=== PATIENT | female | born 1990 | race Caucasian/White ===

== ENCOUNTER 2016-12-12 05:20 | Inpatient (IN) | payer BC ==
[~2016-12-12] VITALS: Ht 162.6 cm; Wt 128.8 kg
[2016-12-12] VITALS (14 sets, daily range): BP systolic 99–188; BP diastolic 53–92
[2016-12-12] MEDS ORDERED: MORPHINE SULFATE 4 MG/ML DISP.SYRIN. IV PRN (07:45)
[2016-12-12] MEDS ORDERED: IV RINGERS,LACTATED 1000ML 1,000 ML IV SCH (08:02)
[2016-12-12] MEDS ORDERED: fentaNYL PF VIAL 100 MCG/2 ML VIAL IV PRN ×2 (08:15)
[2016-12-12] MEDS ORDERED: ONDANSETRON PF 4 MG/2 ML VIAL. IV PRN (08:15)
[2016-12-12] MEDS ORDERED: PROCHLORPERAZINE 10 MG/2 ML VIAL. IV PRN ×2 (08:15→14:15)
[2016-12-12] MEDS ORDERED: HYDROmorphone 2 MG/ML VIAL IV PRN (08:15)
[2016-12-12] MEDS ORDERED: LIDOCAINE 1% 1 ML SYRINGE. ID PRN (08:15)
[2016-12-12] MEDS ORDERED: DESFLURANE > 120 MINUTES IH ONE (08:49)
[2016-12-12] MEDS ORDERED: GLYCOPYRROLATE 1 MG/5 ML VIAL. ONE (08:50)
[2016-12-12] MEDS ORDERED: NEOSTIGMINE 10 MG/10 ML VIAL. ONE (08:50)
[2016-12-12] MEDS ORDERED: MIDAZOLAM HCL/PF 2 MG/2 ML VIAL. ONE (08:50)
[2016-12-12] MEDS ORDERED: fentaNYL PF VIAL 100 MCG/2 ML VIAL ONE ×2 (08:50→10:24)
[2016-12-12] MEDS ORDERED: LIDOCAINE 2% PF Vial for OR 5 ML VIAL. ONE (08:51)
[2016-12-12] MEDS ORDERED: DEXAMETHASONE SOD PHOS 20 MG/5 ML VIAL. ONE (08:51)
[2016-12-12] MEDS ORDERED: KETOROLAC 60 MG/2 ML INJ FOR OR. ONE (08:51)
[2016-12-12] MEDS ORDERED: SUCCINYLCHOLINE 200 MG/10 ML VIAL. ONE (08:51)
[2016-12-12] MEDS ORDERED: ONDANSETRON PF 4 MG/2 ML VIAL. ONE (08:51)
[2016-12-12] MEDS ORDERED: ROCURONIUM 100 MG/10 ML VIAL. ONE (08:51)
[2016-12-12] MEDS ORDERED: PROPOFOL 20 ML IV ONE (08:51)
[2016-12-12] MEDS ORDERED: SURGICEL HEMOSTAT 4X8 EACH. ONE (08:54)
[2016-12-12] MEDS ORDERED: BUPIVACAINE-EPI 0.5%-1:200000 50 ML VIAL. ONE (08:55)
[2016-12-12] MEDS ORDERED: LORazepam 0.5 MG TABLET PO PRN (09:15)
--- NOTE | 2016-12-12 11:04 | PDOC ---
BRIEF OPERATIVE NOTE Pre-Op Diagnosis RLQ pain, poss appendicitis lap appy gen ebl 20 ivf 1000 timothy ariadna dalton to rr stable #[id number] COLETTE DALTON MD Dec 12, 2016 11:04
[2016-12-12] MEDS ORDERED: MORPHINE SULFATE 2 MG/ML DISP.SYRIN. ONE (11:07)
[2016-12-12] MEDS: MORPHINE SULFATE 2 MG/ML DISP.SYRIN. IV PRN ×2 (11:08→11:20)
[2016-12-12] MEDS: KETOROLAC TROMETHAMINE 30 MG/ML INJ. IV PRN (11:22)
[2016-12-12] MEDS ORDERED: DIVALPROEX DELAYED RELEASE 250 MG TABLET.DR. PO SCH (12:00)
--- NOTE | 2016-12-12 13:15 | CONS ---
DATE OF CONSULTATION: 12/12/2016 CHIEF COMPLAINT: Abdominal pain. HISTORY OF PRESENT ILLNESS: The patient is a 26-year-old female, who is accompanied today by her dad. She has a history of 1 month of right lower quadrant pain. She was seen in the Emergency Room on 12/09/2016 and she had a transvaginal ultrasound that was normal. She then was discharged home and she had worsening of her abdominal pain today. She describes worsening right lower quadrant pain over the last 4 days. The pain is sharp and constant. It is not associated with nausea, vomiting, fevers or chills. It is not worse with movement. There is no aggravating or relieving factors. She had a CT scan last night at [facility], which showed mild ground glass edema surrounding the appendix with a borderline diameter of 8 mm, early changes of appendicitis are not excluded. There is no other etiology for her pain is identified on the CT scan. Her lab was normal with the white blood cell count 7.7. PAST MEDICAL HISTORY: Seizure disorder. PAST SURGICAL HISTORY: She had an exploratory sounds like perineal surgery after she fell in the shower ____ it during an active seizure. SOCIAL HISTORY: She is employed. She is a nonsmoker, nondrinker. She is single. Her father is here with her today. MEDICATIONS AT HOME: She takes her anti-seizure medication. ALLERGIES: SULFA. FAMILY HISTORY: Noncontributory to this illness. REVIEW OF SYSTEMS: CONSTITUTIONAL: No fevers or chills. EYES: No abrupt loss of vision or double vision. EARS, NOSE, MOUTH, AND THROAT: No loss of hearing or ringing in ears. CARDIOVASCULAR: No chest pain or heart palpitations. RESPIRATORY: No cough or shortness of breath. GASTROINTESTINAL: See HPI. GENITOURINARY: No dysuria or hematuria. MUSCULOSKELETAL: No new myalgias or arthralgias. DERMATOLOGIC: No new skin rashes or lesions. NEUROLOGIC: Headaches. She has a history of seizures. She has intermittently there exacerbated by stress and lack of sleep, no headaches. PSYCHIATRIC: She has mild depression at times. No anxiety. ENDOCRINE: No polyuria or polydipsia. She does have a history of polycystic ovary disease. HEMATOLOGIC: No easy bleeding or bruising. PHYSICAL EXAMINATION: VITAL SIGNS: She has been afebrile with a pulse in the 60s-70s, respiratory rate 16, blood pressure 149/79. O2 sat 97% on room air. Her BMI today is 48.7. GENERAL: Well-developed, morbidly obese female, in no acute distress. PSYCHIATRIC: She is cooperative with appropriate mood and affect. She is drowsy. She was given morphine ____, but she is able to awaken and answer questions appropriately and participate in the discussion. HEENT: Eyes: Pupils are round and reactive. Sclerae are nonicteric. NECK: Supple, without cervical lymphadenopathy, no supraclavicular lymphadenopathy. No neck masses or tenderness. CARDIOVASCULAR: Palpation of her right radial pulse reveals a 2+ right radial pulse. No pedal edema, respirations nonlabored. She is on room air. CHEST WALL: Nontender to palpation. ABDOMEN: Soft, nondistended. She is exquisitely tender in the right lower quadrant just beneath the McBurney's point. No palpable hernias in the right lower quadrant. No rebound, no guarding, no Rovsing sign. No abdominal tenderness in the upper abdomen, specifically no Sanford sign. MUSCULOSKELETAL: No obvious joint deformity. She can move all 4 extremities without difficulty. DERMATOLOGIC: Exposed portions of her skin are unremarkable. NEUROLOGIC: She has some twitching that is intermittent at times that her dad says it is associated with her seizure disorder, no resting tremor. LABORATORY DATA: Reviewed. IMAGING: Reviewed. I have reviewed the imaging report as well as the images. ASSESSMENT: 1. Right lower quadrant pain with abnormal appendix on imaging, possible appendicitis. 2. Morbid obesity with a BMI of 48.7. 3. Seizure disorder. PLAN: The patient and her father as well as another visitor discussed treatment options. Given the abnormality of the appendix on CT scan and ongoing right lower quadrant pain. I do think proceeding with laparoscopic appendectomy is reasonable; however, her symptoms of pain for the last month are not typical of appendicitis and there is a chance that her appendix to be unremarkable intraoperatively. At that point, I would still remove the appendix and then proceed with exploration laparoscopically to see if there is any other identifiable reason for her pain. We discussed that postoperatively, she has the risk of having ongoing pain. We also discussed the surgery it could be deferred today, if she wants to pursue further workup or have ongoing observation to see if the pain would improve. She was very insistent that she have surgery today. She is not interested in any other nonoperative measures. Risk of surgery including bleeding, infection, need to convert to open ongoing pain and finding other pathology requiring repair as well as increased risk of seizures were all discussed with her and her father as well. Questions are answered and both of them desire to proceed with the surgery, had the father signed her consent because she is drowsy after having had morphine. The patient also signed her consent. Questions were answered. COLETTE DALTON MD DR: CINDI/david JOB#: [id number] / [id number] BO Cortes MD, URSULA MD
[2016-12-12] MEDS ORDERED: 0.9 % SODIUM CHLORIDE 10 ML DISP.SYRIN. IV PRN (14:15)
[2016-12-12] MEDS ORDERED: LORazepam 1 MG TABLET PO PRN (14:15)
[2016-12-12] MEDS ORDERED: CALCIUM CARBONATE 500 MG TAB.CHEW PO PRN (14:15)
[2016-12-12] MEDS ORDERED: oxyCODONE/APAP 5/325 1 TAB TABLET PO PRN (14:15)
[2016-12-12] MEDS: oxyCODONE/APAP 5/325 1 TAB TABLET PO PRN ×2 (14:29→20:32)
--- NOTE | 2016-12-12 14:46 | OP ---
DATE OF SURGERY: 12/12/2016 PREOPERATIVE DIAGNOSIS: Right lower quadrant pain, possible appendicitis. POSTOPERATIVE DIAGNOSIS: Right lower quadrant pain, possible appendicitis. PROCEDURE: Laparoscopic appendectomy. SURGEON: Colette Dalton M.D. ANESTHESIA: General. ESTIMATED BLOOD LOSS: 20 mL. IV FLUIDS: 1000 mL. INDICATIONS: This is a 26-year-old female who presents with right lower quadrant pain suspicious for acute appendicitis by CT scan. FINDINGS: The body of the appendix appeared mildly thickened and injected, subtle changes to suggest early appendicitis. No other intra-abdominal abnormality noted. DESCRIPTION OF PROCEDURE: After informed consent was obtained, the patient was taken to the operating room and placed in supine position. After adequate induction of general anesthesia, she was prepped and draped in usual sterile fashion. An umbilical skin incision was made with a scalpel, subcutaneous tissues with a hemostat. [facility] was used to grab the fascia and lift it anteriorly. Veress was used to gain access to the peritoneal cavity. Low opening pressures confirmed intraperitoneal placement of Veress. Pneumoperitoneum to 15 mmHg was established followed by placement of 5 mm port. A 5 mm 30 degree lens was inserted, which revealed good port placement. No evidence of entry trauma. She was placed head down and two additional ports were placed, one was the left lower quadrant port and one was a 5 mm port. They were placed under direct vision. The left lower quadrant port was a 12 mm port and the suprapubic port was a 5 mm port. The appendix was visible in the right lower quadrant with the changes described above. A window was made at the base of appendix with a [place] dissector. Laparoscopic NELLI blue load stapler was used to divide the base of the appendix. Laparoscopic NELLI white load was then used to divide the mesoappendix. Appendix was placed in laparoscopic bag and brought out to the left lower quadrant incision. There was a little bit of bleeding from the mesoappendiceal staple line that was easily controlled with a clip supervisor rose grading. Right lower quadrant was irrigated. Irrigant returned clear. The staple lines were intact and hemostatic. The small bowel was then run and there was no evidence of Meckel's diverticulitis and there was no abnormality. The small bowel and cecum appeared normal as did the visible portions of the right colon. The gallbladder grossly appeared normal. The uterus, ovaries and tubes appeared normal. No evidence of inguinal hernia laparoscopically. At this point, the final look at the right lower quadrant revealed it to be hemostatic. Fascial closure device was used to close the fascia at the left lower quadrant incision using 0 Vicryl suture. The ports were removed under direct vision. They were hemostatic. Pneumoperitoneum was desufflated. Skin incisions and fascia were injected with local anesthetic. Skin incisions were closed with 4-0 Monocryl in subcuticular fashion. Sterile dressings were placed. She tolerated the procedure well. There were no apparent complications. She was then transferred in stable condition to recovery room. COLETTE DALTON MD DR: CINDI/david JOB#: [id number] / [id number] BO Cortes MD, URSULA MD
--- NOTE | 2016-12-12 15:05 | PDOC2 ---
NEUROLOGY CONSULT Date of Admission Date of Admission DATE: 12/12/16 TIME: 14:56 Reason for Consult Reason for Consult: IMPRESSION: Seizure. Appendicitis Obesity. RECOMMENDATIONS/PLAN: Continue Depakote home regimen. EEG Lab: see orders. HISTORY OF THE PRESENT ILLNESS: 26-y-old female patient with Hx of seizure and has been treated with Depakote. She was admitted into the [facility] hospital this time due to right lower quadrant pain with consideration of appendicitis and she received surgical treatment. She stated she had a seizure a week ago and has seizures about 1 a month. PAST MEDICAL HISTORY: Seizure.. PAST SURGICAL HISTORY: Exploratory perineal surgery ?after she fell in the shower. SOCIAL HISTORY: Denies smoking and drinking. MEDICATIONS AT HOME: Depakote. ALLERGIES: SULFA. FAMILY HISTORY: Noncontributory to this illness. REVIEW OF SYSTEMS: Constitutional: No malnutrition, weight loss, cachexia. Head: No traumatic brain or head injury. Skin: No edema, or rash. Ear: No infection. Eyes: No vision loss or color blindness. Nose: No bleeding or purulent discharges. Hearing: No hearing decrease. Neck: No injury. Breast: No history of cancer, masses,or discharges. Cardiac: No GA, arrhythmia. Pulmonary: No COPD. GI: No GI ulcer, GI bleeding. Urinary/genital: UTI. Endocrinologic: Obesity. Skeletomuscular: No muscular atrophy, deformity. Neurological: see HP. Psychiatric: Denies drug use/abuse. Otherwise, not [id number] review of systems. PHYSICAL EXAMINATION: General appearance is in subacute distress. HEENT: Normocephalic and nontraumatic. Eyes, nose, ears, and throat are unremarkable. Neck is supple. No lymphadenopathy. No bruits are heard over the carotid artery. No crepitus. Cardiovascular: S1, S2, regular rate and rhythm. Pulmonary: Clear to auscultation bilaterally. Abdomen: Bowel sounds are positive. Extremities: No rash, lesions, or edema. No restriction of range of motion NEUROLOGICAL EXAMINATION: Sleepiness. Oriented to time, place and person. PERRL. EOMI. CN: no focal findings. Muscle tone: within normal. Muscle strength: 5 DTR: 2 Plantar reflex: Flexor response bilaterally Gait: not examined in bed. Sensory exam: no abnormal findings. No cerebellar signs elicited. F-T-N test not performed due to sleepiness. Current Medications Current Medications Current Medications Morphine Sulfate 2 mg PRN Q2HR PRN IV PAIN Last administered on 12/12/16 08:08 ; Start 12/12/16 at 07:45 Ondansetron HCl (Zofran) 4 mg PRN Q6HRS PRN IV NAUSEA/VOMITING; Start 12/12/16 at 08:15; Stop 12/12/16 at 18:00 Fentanyl Citrate (Fentanyl 2ml Vial) 25 mcg PRN Q5MIN PRN IV MILD PAIN; Start 12/12/16 at 08:15; Stop 12/12/16 at 18:00 Fentanyl Citrate (Fentanyl 2ml Vial) 50 mcg PRN Q5MIN PRN IV MODERATE PAIN; Start 12/12/16 at 08:15; Stop 12/12/16 at 18:00 Morphine Sulfate 1 mg PRN Q10MIN PRN IV SEVERE PAIN Last administered on 11:20; Start 12/12/16 at 08:15; Stop 12/12/16 at 18:00 Ringer's Solution 1,000 ml @ 30 mls/hr Q24H IV Last administered on 12/12/16 08:02; Start 12/12/16 at 08:02; Stop 12/12/16 at 20:01 Lidocaine HCl 2 ml PRN 1X PRN ID PRIOR TO IV START; Start 12/12/16 at 08:15; Stop 12/12/16 at 18:00 Hydromorphone HCl (Dilaudid) 0.5 mg PRN Q10MIN PRN IV SEV PAIN, Second choice; Start 12/12/16 at 08:15; Stop 12/12/16 at 18:00 Prochlorperazine Edisylate (Compazine) 5 mg PACU PRN PRN IV NAUSEA, MRX1 Last administered on 12/12/16 11:08; Start 12/12/16 at 08:15; Stop 12/12/16 at 18:00 Desflurane (Suprane) 90 ml STK-MED ONCE IH ; Start 12/12/16 at 08:49; Stop at 08:50; Status DC Neostigmine Methylsulfate (Bloxiverz) 10 mg STK-MED ONCE .ROUTE ; Start 12/12/16 at 08:50; Stop 12/12/16 at 08:51; Status DC Midazolam HCl (Versed) 2 mg STK-MED ONCE .ROUTE ; Start 12/12/16 at 08:50; Stop 12/12/16 at 08:51; Status DC Fentanyl Citrate (Fentanyl 2ml Vial) 100 mcg STK-MED ONCE .ROUTE ; Start at 08:50; Stop 12/12/16 at 08:51; Status DC Glycopyrrolate (Robinul) 1 mg STK-MED ONCE .ROUTE ; Start 12/12/16 at 08:50; Stop 12/12/16 at 08:51; Status DC Rocuronium Gravette (Zemuron) 100 mg STK-MED ONCE .ROUTE ; Start 12/12/16 at 08:51 ; Stop 12/12/16 at 08:52; Status DC Propofol 20 ml @ As Directed STK-MED ONCE IV ; Start 12/12/16 at 08:51; Stop 12/12 at 08:52; Status DC Dexamethasone Sodium Phosphate (Decadron) 20 mg STK-MED ONCE .ROUTE ; Start 12/12 at 08:51; Stop 12/12/16 at 08:52; Status DC Ondansetron HCl (Zofran) 4 mg STK-MED ONCE .ROUTE ; Start 12/12/16 at 08:51; Stop 12/12/16 at 08:52; Status DC Ketorolac Tromethamine (Toradol For Or Only) 60 mg STK-MED ONCE .ROUTE ; Start 12/12/16 at 08:51; Stop 12/12/16 at 08:52; Status DC Lidocaine HCl (Lidocaine Pf 2% Vial) 5 ml STK-MED ONCE .ROUTE ; Start 12/12/16 at 08:51; Stop 12/12/16 at 08:52; Status DC Succinylcholine Chloride (Anectine) 200 mg STK-MED ONCE .ROUTE ; Start 12/12/16 at 08:51; Stop 12/12/16 at 08:52; Status DC Cellulose 1 each STK-MED ONCE .ROUTE ; Start 12/12/16 at 08:54; Stop 12/12/16 at 08:55; Status DC Bupivacaine HCl/ Epinephrine Bitart (Marcaine-Epi 0.5%-[id number]) 50 ml STK-MED ONCE .ROUTE Last administered on 12/12/16t 10:12; Start 12/12/16 at 08:55; Stop 12/12/16 at 08:56; Status DC Divalproex Sodium (Depakote) 250 mg [id number] PO ; Start 12/12/16 at 12:00 Lorazepam (Ativan) 0.5 mg PRN Q8HRS PRN PO ANXIETY / AGITATION; Start 12/12/16 at 09:15 Cefoxitin Sodium 100 ml @ As Directed STK-MED ONCE IV ; Start 12/12/16 at 09:36 ; Stop 12/12/16 at 09:37; Status DC Ephedrine Sulfate (Akovaz) 50 mg STK-MED ONCE .ROUTE ; Start 12/12/16 at 09:54; Stop 12/12/16 at 09:55; Status DC Cefoxitin Sodium 100 ml @ 200 mls/hr 1X PREOP PRN IV PRIOR TO SURGERY Last administered on 12/12/16 09:52; Start 12/12/16 at 10:15 Fentanyl Citrate (Fentanyl 2ml Vial) 100 mcg STK-MED ONCE .ROUTE ; Start at 10:24; Stop 12/12/16 at 10:25; Status DC Oxycodone/ Acetaminophen (Percocet 5/325) 2 tab PRN Q4HRS PRN PO PAIN Last administered on 12/12/16 14:29; Start 12/12/16 at 11:15 Ketorolac Tromethamine (Toradol) 30 mg PRN Q6HRS PRN IV PAIN Last administered on 12/12/16 11:22; Start 12/12/16 at 11:15; Stop 12/17/16 at 11:14 Morphine Sulfate 2 mg STK-MED ONCE .ROUTE ; Start 12/12/16 at 11:07; Stop at 11:08; Status DC Sodium Chloride (Normal Saline Flush) 3 ml PRN DAILY PRN IV AFTER MEDS AND BLOOD DRAWS; Start 12/12/16 at 14:15 Potassium Chloride/Sodium Chloride 1,000 ml @ 75 mls/hr [id number] IV ; Start 12/12 at 15:00 Prochlorperazine Edisylate (Compazine) 10 mg PRN Q6HRS PRN IV NAUSEA/VOMITING; Start 12/12/16 at 14:15 Calcium Carbonate/ Glycine (Tums) 500 mg PRN Q3HRS PRN PO UPSET STOMACH; Start 12/12/16 at 14:15 Oxycodone/ Acetaminophen (Percocet 5/325) 1 tab PRN Q4HRS PRN PO MILD PAIN, 1ST CHOICE; Start 12/12/16 at 14:15 Senna/Docusate Sodium (Senna Plus) 1 tab BID PO ; Start 12/12/16 at 21:00 Divalproex Sodium (Depakote Er) 500 mg QHS PO ; Start 12/12/16 at 21:00 Escitalopram Oxalate (Lexapro) 10 mg DAILY PO ; Start 12/13/16 at 09:00 Lorazepam (Ativan) 1 mg PRN Q6HRS PRN PO ANXIETY / AGITATION; Start 12/12/16 at 14:15 Allergies Allergies: Coded Allergies: Sulfa (Sulfonamide Antibiotics) (Verified Allergy, Intermediate, 12/12/16) Vitals VITALS Vital Signs Date Time Temp Pulse Resp B/P (MAP) Pulse Ox O2 Delivery O2 Flow Rate FiO2 12/12/16 14:29 Nasal Cannula 12/12/16 14:00 97.7 69 18 99/68 (52) 95 2.0 97.7 MIK PATEL MD Dec 12, 2016 15:05
--- NOTE | 2016-12-12 15:52 | HP ---
ADMIT DATE: 12/12/2016 CHIEF COMPLAINT: Appendicitis HISTORY OF PRESENT ILLNESS: The patient relates that she actually had had pain off and on for the past month, but attributed to her PCOS. However, when pain became worse and worse she had presented to the Emergency Room for the first time. Ultrasound and labs did not reveal any abnormalities and she was discharged with hydrocodone, when even this did not help, the patient represented to the Emergency Room and was diagnosed with appendicitis. She was promptly transferred to [facility] for surgical attention. The patient was taken to the OR first thing in the morning by Dr. Matias. PAST MEDICAL HISTORY: PCOS. FAMILY HISTORY: No significant family history known to the patient. SOCIAL HISTORY: She lives by herself. Smokes occasionally. Denies alcohol or drugs. ALLERGIES: SULFA. MEDICATIONS: MAR reconciled with home medications.. REVIEW OF SYSTEMS: Positive as per HPI. She denies any fevers, chills, any chest pain, nausea, vomiting or diarrhea. Rest of organ system review is answered negatively as well. PHYSICAL EXAMINATION: VITAL SIGNS: Show a blood pressure of 102/61, heart rate of 78, respiratory rate at 20. She is afebrile. GENERAL: This is a morbidly obese 26-year-old woman, alert and oriented, in no acute distress. LUNGS: Clear to auscultation bilaterally. HEART: Regular rate and rhythm. ABDOMEN: Obese, positive bowel sounds. Surgical incisions covered with gauze. EXTREMITIES: Show no edema. SKIN: Warm, soft and dry. NEUROLOGIC: She appears grossly intact. LABORATORY DATA: From [facility] were reviewed. ASSESSMENT AND PLAN: The patient is a 26-year-old woman with appendicitis, now status post laparoscopic appendectomy by Dr. Matias. She is recovering appropriately. She has pain medications available both p.o. as well as IV. She has been placed on diet by surgery already. Anticipate discharge in the morning. CLAUDINE ARIZA MD DR: UR/nts JOB#: [id number] / [id number] DANIEL
[2016-12-12] MEDS: SENNOSIDES/DOCUSATE 8.6/50MG TABLET. PO SCH (20:32)
[2016-12-12] MEDS ORDERED: DIVALPROEX EXTENDED RELEASE 500 MG TAB.ER.24H. PO SCH (21:00)
[2016-12-13] MEDS: oxyCODONE/APAP 5/325 1 TAB TABLET PO PRN ×4 (01:25→13:46)
--- NOTE | 2016-12-13 01:40 | ACF ---
Admission Forms Criteria ABDOMINAL PAIN Clinical Indications for Admission to Inpatient Care (Place 'X' for any and all applicable criteria): Admission is indicated for ANY ONE of the following(1)(2)(3)(4)(5): [ ]I. Inpatient admission required rather than observation care (Also use Abdominal Pain: Observation Care, as appropriate) because of ANY ONE of the following: [ ]a) Severe pain requiring acute inpatient management [ ]b) Identification of etiology/finding that requires inpatient care (eg, aortic dissection, free air) [ ]c) Absent bowel sounds with complete ileus(6) [ ]d) Suspected toxic megacolon [ ]e) Severe electrolyte abnormalities requiring inpatient care [ ]f) High fever or infection requiring inpatient admission as indicated by ANY ONE of following(7)(8): [ ] i) Appropriate outpatient or observational care antimicrobial treatment unavailable, not effective, or not feasible [ ] ii) Documented bacteremia [ ] iii) Temperature > 104.9 degrees F (oral) [ ] iv) T >103.1 F (oral) or < 96.8 F(rectal) that does not respond to all emergency treatment measures [ ]g) Signs of intestinal obstruction [B] [ ]h) Hemodynamic instability [ ]i) IV fluid to replace significant ongoing losses (greater than 3 L/m2 per day) (12)(13) [ ]j) Percutaneous or open drainage (eg, abscess, biliary tract ) procedures [ ]k) Parenteral nutrition regimen that must be implemented on inpatient basis [ ]l) Other condition,treatment or monitoring requiring inpatient admission. [ ]II. Peritoneal signs present [X]III. Surgery needed that cannot be performed on an ambulatory basis. [ ]IV. Evaluation requires patient to not eat or drink for extended period ( eg, more than 24 hours). [ ]V. Contraindications and/or Inappropriate clinical situations for Observational Care in patients with abdominal pain, when ANY ONE of the following is required: [ ]a) Thorough evaluation is required to prevent catastrophic events due to delays in diagnosing (e.g.Mesenteric ischemia) 1,3 [ ]b) Patient with severe pathology or with chronic symptoms unlikely to improve in the ED stay (3) [ ]. General contraindications and/or Inappropriate clinical situations for Observational Care in patients with abdominal pain, when ANY ONE of the following is required: [ ]a) Prediction of prolongation of LOS based on ANY ONE of the following may be considered as a contraindication for observational care 2, 3, 4, 5, 6, 7, 8, 9, 10, 11 [ ]i) Age > 65 yrs. [ ]ii) Patient arriving by ambulance [ ]iii) Patient with high acuity [ ]iv) Patient requiring vital sign monitoring [ ]v) Patient on IV medication [ ]b) Systolic blood pressures 180mmHg 3,12 [ ]c) Patient with altered mental status including delirium and other alteration of consciousness, (3) [ ]d) Patient whose discharge disposition will be to a residential home or rehabilitation home should not be managed in Emergency Department Observation Unit. CMS rule requires 3 days hospital stay before such placement.3,13 [ ]e) Patient with failure to thrive due to broad array of etiologies 3,16,17 [ ]f) Inability to ambulate 3,14 Extended stay beyond goal length of stay may be needed for(2)(3): [ ]a) Persistent abdominal pain with suspected intra-abdominal process [ ]b) Diagnosed condition requiring continued stay (e.g., pancreatitis, complicated diverticulitis) [ ]c) Surgery (e.g., colectomy) The original [employer] content created by [employer] has been revised. The portions of the content which have been revised are identified through the use of italic text or in bold, and [facility] has neither reviewed nor approved the modified material.All other unmodified content is copyright [employer]. Please see references footnoted in the original [facility] [employer] edition 2016 Admission Criteria Met?: No FRANCIS REYES Dec 13, 2016 01:40 CLAUDINE ARIZA MD Dec 16, 2016 08:57
[2016-12-13 03:00] VITALS: BP 156/85
[2016-12-13 07:00] VITALS: BP 121/76
[2016-12-13] MEDS: KETOROLAC TROMETHAMINE 30 MG/ML INJ. IV PRN (08:09)
[2016-12-13] MEDS: SENNOSIDES/DOCUSATE 8.6/50MG TABLET. PO SCH (08:09)
[2016-12-13] MEDS ORDERED: IBUPROFEN 800 MG TABLET. PO PRN (08:15)
--- NOTE | 2016-12-13 08:18 | PDOC ---
Provider Note Provider Note the RLQ pain she had preop is gone. she now has incisional pain. has been able to get up to the bathroom independently and has been walking in halls afeb vss abd soft no RLQ tenderness. appropriate incisional tenderness bandages dry a/p pod #1 lap appy seizure do morbid obesity dc home later today. COLETTE DALTON MD Dec 13, 2016 08:18
[2016-12-13] MEDS ORDERED: ESCITALOPRAM 5 MG TABLET. PO SCH (09:00)
[2016-12-13] MEDS ORDERED: ENOXAPARIN 40 MG/0.4 ML SYRINGE. SQ SCH (09:00)
[2016-12-13 11:00] VITALS: BP 118/63
--- NOTE | 2016-12-13 13:35 | PDOC ---
PROGRESS NOTES Assessment Assessment Seizure. Appendicitis Obesity. Anxiety. RECOMMENDATIONS/PLAN: Continue Depakote, increase dose from 500 mg HS to 750 mg HS. VPA level was low , 26. Treat medical and surgical disease. Lab: AST, ALT FU with PCP. FU with Dr. Hernandez in [facility] per schedule. HISTORY OF THE PRESENT ILLNESS: 26-y-old female patient with Hx of seizure and has been treated with Depakote. She was admitted into the [facility] this time due to right lower quadrant pain with consideration of appendicitis and she received surgical treatment. She stated she had a seizure a week ago and has seizures about 1 a month. No seizures since in the hospital. PAST MEDICAL HISTORY: Seizure.. PAST SURGICAL HISTORY: Exploratory perineal surgery ?after she fell in the shower. SOCIAL HISTORY: Denies smoking and drinking. MEDICATIONS AT HOME: Depakote. ALLERGIES: SULFA. FAMILY HISTORY: Noncontributory to this illness. REVIEW OF SYSTEMS: Constitutional: No malnutrition, weight loss, cachexia. Head: No traumatic brain or head injury. Skin: No edema, or rash. Ear: No infection. Eyes: No vision loss or color blindness. Nose: No bleeding or purulent discharges. Hearing: No hearing decrease. Neck: No injury. Breast: No history of cancer, masses,or discharges. Cardiac: No OR, arrhythmia. Pulmonary: No COPD. GI: No GI ulcer, GI bleeding. Urinary/genital: UTI. Endocrinologic: Obesity. Skeletomuscular: No muscular atrophy, deformity. Neurological: see HP. Psychiatric: Denies drug use/abuse. Otherwise, not -ywtrs review of systems. PHYSICAL EXAMINATION: General appearance is in no acute distress. HEENT: Normocephalic and nontraumatic. Eyes, nose, ears, and throat are unremarkable. Neck is supple. No lymphadenopathy. No bruits are heard over the carotid artery. No crepitus. Cardiovascular: S1, S2, regular rate and rhythm. Pulmonary: Clear to auscultation bilaterally. Abdomen: Bowel sounds are positive. Extremities: No rash, lesions, or edema. No restriction of range of motion NEUROLOGICAL EXAMINATION: Awake. Oriented to time, place and person. PERRL. EOMI. CN: no focal findings. Muscle tone: within normal. Muscle strength: 5 DTR: 2 Plantar reflex: Flexor response bilaterally Gait: not examined in bed. Sensory exam: no abnormal findings. No cerebellar signs elicited. F-T-N test fine. Objective Objective Vital Signs Date Time Temp Pulse Resp B/P (MAP) Pulse Ox O2 Delivery O2 Flow Rate FiO2 12/13/16 11:05 98 Room Air 12/13/16 11:00 97.5 61 18 118/63 (81) 97.5 12/13/16 06:18 2.0 Intake and Output 12/13/16 07:00 Intake Total 3560 ml Output Total 150 ml Balance 3410 ml Intake Oral 1560 ml IV Total 2000 ml Output Urine Total 130 ml Estimated Blood Loss 20 ml # Voids 4 Vitals Signs Vitals VS - Last 72 Hours, by Label Date Time Temp Pulse Resp B/P (MAP) Pulse Ox O2 Delivery O2 Flow Rate FiO2 12/13/16 11:05 98 Room Air 12/13/16 11:00 97.5 61 18 118/63 (81) 95 Room Air 97.5 12/13/16 09:32 Room Air 12/13/16 07:50 Room Air 12/13/16 07:00 97.7 70 18 121/76 (91) 98 Room Air 97.7 12/13/16 06:18 2.0 12/13/16 05:18 96 Nasal Cannula 2.0 12/13/16 03:00 98.1 86 18 156/85 (108) 96 Nasal Cannula 2.0 98.1 12/13/16 01:25 95 Nasal Cannula 3.0 12/12/16 23:41 62 126/61 (82) 12/12/16 23:00 97.1 86 18 188/92 (124) 95 Nasal Cannula 2.0 97.1 12/12/16 20:32 92 Nasal Cannula 2.0 12/12/16 20:00 Nasal Cannula 2.0 12/12/16 19:00 98.1 71 18 141/83 (102) 92 Nasal Cannula 2.0 98.1 12/12/16 18:32 Room Air 12/12/16 16:07 97.0 62 20 110/66 (81) 95 Nasal Cannula 2.0 97.0 12/12/16 15:00 97.3 70 18 115/71 (86) 94 Nasal Cannula 2.0 97.3 12/12/16 14:30 65 16 112/71 (85) 96 Nasal Cannula 2.0 12/12/16 14:29 Nasal Cannula 12/12/16 14:00 97.7 69 18 99/68 (78) 95 Nasal Cannula 2.0 97.7 12/12/16 13:30 72 18 123/53 (76) Nasal Cannula 2.0 12/12/16 13:00 126/62 (83) 12/12/16 12:45 60 16 139/77 (97) Nasal Cannula 2.0 12/12/16 12:30 141/79 (99) 12/12/16 12:15 96.4 62 16 137/77 (97) Nasal Cannula 2.0 96.4 12/12/16 11:55 78 20 102/61 96 Nasal Cannula 2 12/12/16 11:40 98.2 57 20 123/59 97 Nasal Cannula 2 98.2 12/12/16 11:37 Nasal Cannula 2 12/12/16 11:25 56 20 118/59 97 Nasal Cannula 2 12/12/16 11:20 20 Simple Mask 10.0 12/12/16 11:10 75 20 116/53 97 Simple Mask 10 12/12/16 11:08 20 98 Simple Mask 10.0 12/12/16 10:55 97.9 97 16 151/67 96 Simple Mask 10 97.9 12/12/16 10:55 Mask 10 12/12/16 08:39 97.6 57 12 163/91 98 97.6 12/12/16 08:38 Room Air 12/12/16 08:08 Room Air 12/12/16 07:40 Room Air 12/12/16 07:00 97.9 56 14 115/56 (75) 98 Room Air 97.9 Laboratory Laboratory Laboratory Tests Test 12/12/16 15:15 Valproic Acid (Depakene) Level 26 mcg/mL (50-100) Valproic Acid Last Dose Date 12/12/16 Valproic Acid Last Dose Time 0900 Medication Medications Current Medications Calcium Carbonate/ Glycine (Tums) 500 mg PRN Q3HRS PRN PO UPSET STOMACH; Start 12/12/16 at 14:15 Divalproex Sodium (Depakote Er) 500 mg QHS PO Last administered on 12/12/16t 20: 33; Start 12/12/16 at 21:00 Enoxaparin Sodium (Lovenox 40mg Syringe) 40 mg Q24H SQ Last administered on 12/13 09:33; Start 12/13/16 at 09:00 Escitalopram Oxalate (Lexapro) 10 mg DAILY PO Last administered on 12/13/16 09: 32; Start 12/13/16 at 09:00 Ibuprofen (Motrin) 800 mg PRN Q8HRS PRN PO INFLAMMATION; Start 12/13/16 at 08:15 Lorazepam (Ativan) 1 mg PRN Q6HRS PRN PO ANXIETY / AGITATION Last administered on 12/12/16 19:17; Start 12/12/16 at 14:15 Oxycodone/ Acetaminophen (Percocet 5/325) 1 tab PRN Q4HRS PRN PO MILD PAIN; Start 12/12/16 at 14:15 Potassium Chloride/Sodium Chloride 1,000 ml @ 75 mls/hr [id number] IV Last administered on 12/13/16 05:21; Start 12/12/16 at 15:00; Stop 12/13/16 at 08:16; Status DC Prochlorperazine Edisylate (Compazine) 10 mg PRN Q6HRS PRN IV NAUSEA/VOMITING; Start 12/12/16 at 14:15 Senna/Docusate Sodium (Senna Plus) 1 tab BID PO Last administered on 12/13/16 08:09; Start 12/12/16 at 21:00 Sodium Chloride (Normal Saline Flush) 3 ml PRN DAILY PRN IV AFTER MEDS AND BLOOD DRAWS; Start 12/12/16 at 14:15 Comment Review of Relevant I have reviewed the following items pawel (where applicable) has been applied. MIK PATEL MD Dec 13, 2016 13:35
[2016-12-13] MEDS ORDERED: OXYC1TAB7 PO (14:15)
[2016-12-13] MEDS ORDERED: ESCITALOPRAM OXA5 MG PO (14:15)
[2016-12-13] MEDS ORDERED: DIVA250T PO (14:15)
[2016-12-13] MEDS ORDERED: LORA-434 PO (14:15)
[2016-12-13 14:44] LABS: CREATININE 0.8 mg/dL (0.6-1.0); GFR 85.4
[2016-12-13 14:48] LABS: ALT (SGPT) 16 U/L (14-59); AST (SGOT) 17 U/L (15-37)
--- NOTE | 2016-12-13 16:27 | PATHOLOGY ---
PATHOLOGY REPORT * * * * * * * * FINAL DIAGNOSIS: Appendix, laparoscopic appendectomy: - Focal early acute appendicitis. - Chronic appendicitis with follicular lymphoid hyperplasia. (JPM:mml; 12/13/2016) REPORT ELECTRONICALLY SIGNED BY: Elieser Chou M.D. DATE/TIME: 12/13/2016 16:26 * * * * * * * * GROSS PATHOLOGY: Received in formalin labeled "Doug Overton, appendix," is an appendix measuring 6.3 cm in length and 0.8 cm in diameter with a moderate amount of attached mesoappendix. The serosal surface is pink zarco, smooth and glistening. Sectioning reveals a slightly dilated lumen throughout, filled with bright yellow green purulent material. [employer] sections are submitted in cassette A1. (JPM; 12/12/16) INITIAL CPT CODE(S): A; 65246 Professional services performed [place] [facility] [place] [address] Technical services performed by [facility] at [address] [place] [address]. SPECIMEN(S) RECEIVED: A.Appendix CLINICAL HISTORY: Acute appendicitis PATIENT: DOUG OVERTON /AGE: 712/07/1990 (Age: 26) PATIENT #: [id number] ALT CASE #: SPECIMEN COLLECTION DATE: 12/12/2016 SPECIMEN RECEIVED DATE: 12/12/2016 [facility] - [address] [place] [address] - PHONE: [phone] * * * END OF REPORT * * *
--- NOTE | 2016-12-13 19:25 | DS ---
DATE OF DISCHARGE: 12/13/2016 CHIEF COMPLAINT: Appendicitis. HOSPITAL COURSE: The patient is a 26-year-old morbidly obese woman who presented for the second time in a few days with right-sided abdominal pain. She was diagnosed with appendicitis and taken to the OR by Dr. Matias on 12/12/2016. She tolerated the procedure well. Pain was well controlled on oral medications and she was discharged on postoperative day #1. PHYSICAL EXAMINATION: VITAL SIGNS: Show a blood pressure of 118/63, heart rate of 61, respiratory rate at 18. She is afebrile. GENERAL: This is a morbidly obese woman, alert and oriented, in no acute distress. LUNGS: Clear. HEART: Regular rate and rhythm. ABDOMEN: Obese. The laparoscopic incisions are covered with gauze bandaids. EXTREMITIES: Show no edema. DISCHARGE DATE: 12/13/2016. DISCHARGE DIAGNOSIS: Appendicitis, status post laparoscopic appendectomy on 12/12/2016. DISCHARGE DISPOSITION: To home. DISCHARGE CONDITION: Improved. DISCHARGE MEDICATIONS: Please refer to MAR. DISCHARGE INSTRUCTIONS: The patient will follow up with the Surgical Clinic in 10-14 days. CLAUDINE ARIZA MD DR: CHENTE/nts JOB#: [id number] / [id number] DANIEL
[2016-12-13] MEDS ORDERED: DIVALPROEX EXTENDED RELEASE 250 MG TAB.ER.24H. PO SCH (21:00)
== END 2016-12-13 15:00 | disposition home or self-care (01) | DRG 342 ==
LOC: 4 NORTH 06:44
PROVIDERS: ADMIT Internal Medicine Hematology & Oncology; ATTEND Internal Medicine Hematology & Oncology
PROC: 0DTJ4ZZ Resection of Appendix, Percutaneous Endoscopic Approach (ICD-10-PCS; principal; 2016-12-12 09:15)
DX: K35.80 Unspecified acute appendicitis (principal); Z68.42 Body mass index [BMI] 45.0-49.9, adult; E66.01 Morbid (severe) obesity due to excess calories; F17.200 Nicotine dependence, unspecified, uncomplicated; G40.909 Epilepsy, unspecified, not intractable, without status epilepticus; W18.2XXA Fall in (into) shower or empty bathtub, initial encounter; Z88.2 Allergy status to sulfonamides; F41.9 Anxiety disorder, unspecified
CPT/HCPCS: 36415; 80164; 82565; 84450; 84460; 85049; 88304; J0330; J0694; J0780; J1100; J1650; J1885; J2001; J2250; J2270; J2405; J2704; J2710; J3010; J3490; J7030; J7120

== ENCOUNTER → 2017-06-23 | Outpatient (CLI) | payer OTHER ==
[2017-06-23] MEDS: GADOBUTROL 10 MMOL/10 ML VIAL IV ×4 (17:20)
== END | disposition home or self-care (01) ==
LOC: KCIC MRI 15:51
DX: G40.909 Epilepsy, unspecified, not intractable, without status epilepticus (principal); E22.1 Hyperprolactinemia; E28.2 Polycystic ovarian syndrome
CPT/HCPCS: 70553; A9585

== ENCOUNTER → 2018-07-07 | Outpatient (CLI) | payer OTHER ==
[~2018-07-07] MED LIST: DIVA250T PO; ESCITALOPRAM OXA5 MG PO; LORA-434 PO; OXYC1TAB7 PO
[2018-07-07 16:51] LABS: VAL ACID 9 mcg/mL (50-100)
== END | disposition home or self-care (01) ==
LOC: LAB 15:53
PROVIDERS: ATTEND Psychiatry & Neurology Neurology with Special Qualifications in Child Neurology
DX: G40.309 Generalized idiopathic epilepsy and epileptic syndromes, not intractable, without status epilepticus (principal)
CPT/HCPCS: 36415; 80164

== ENCOUNTER → 2019-12-15 | Outpatient (CLI) | payer OTHER ==
[2019-12-15 11:17] LABS: VAL ACID 65 mcg/mL (50-100)
== END | disposition home or self-care (01) ==
LOC: LAB 10:00
PROVIDERS: ATTEND Psychiatry & Neurology Neurology with Special Qualifications in Child Neurology
DX: G40.309 Generalized idiopathic epilepsy and epileptic syndromes, not intractable, without status epilepticus (principal)
CPT/HCPCS: 36415; 80164; 80177

== ENCOUNTER → 2019-12-15 | Outpatient (CLI) | payer OTHER ==
[2019-12-15 10:46] LABS: BASO % 1 % (0-3); EOS # 0.1 x10^3/uL (0.0-0.7); EOS % 2 % (0-3); HEMATOCRIT 40.8 % (36.0-47.0); LYMPH # 1.7 x10^3/uL (1.0-4.8); LYMPH % 30 % (24-48); MEAN CORPUSCULAR HEMOGLOBIN 28 pg (25-35); MEAN CORPUSCULAR HGB CONC 34 g/dL (31-37); MEAN CORPUSCULAR VOLUME 83 fL (79-100); MONO # 0.4 x10^3/uL (0.0-1.1); MONO % 7 % (0-9); NEUT # 3.5 x10^3/uL (1.8-7.7); NEUT % 60 % (31-73); PLATELET COUNT 278 x10^3/uL (140-400); RED BLOOD COUNT 4.92 x10^6/uL (3.50-5.40); RED CELL DISTRIBUTION WIDTH 13.7 % (11.5-14.5); WHITE BLOOD COUNT 5.8 x10^3/uL (4.0-11.0)
[2019-12-15 11:18] LABS: ALBUMIN 3.4 g/dL (3.4-5.0); ALBUMIN/GLOBULIN RATIO 0.9 (1.0-1.7); CALCIUM 8.8 mg/dL (8.5-10.1); CHOLESTEROL/HDL RATIO 3.9; CREATININE 0.7 mg/dL (0.6-1.0); GFR 97.6; POTASSIUM 3.7 mmol/L (3.5-5.1); TOTAL BILIRUBIN 0.7 mg/dL (0.2-1.0); TOTAL PROTEIN 7.4 g/dL (6.4-8.2)
[2019-12-15 11:28] LABS: FREE T4 1.12 ng/dL (0.76-1.46); THYROID STIM HORMONE (TSH) 2.69 uIU/mL (0.358-3.74)
[2019-12-15 19:10] LABS: FSH 5.1 mIU/mL (.); LUTEINIZING HORMONE 9.3 mIU/mL (.); T3 TOTAL 137 ng/dL (71-180)
[2019-12-16 01:09] LABS: HEMOGLOBIN A1C 5.4 % (4.8-5.6)
[2019-12-16 08:16] LABS: INSULIN LEVEL 22.1 uIU/mL (2.6-24.9)
== END | disposition home or self-care (01) ==
LOC: LAB 10:06
PROVIDERS: ATTEND Obstetrics & Gynecology
DX: E28.2 Polycystic ovarian syndrome (principal); R94.6 Abnormal results of thyroid function studies
CPT/HCPCS: 36415; 80053; 80061; 82627; 82652; 83001; 83002; 83036; 83525; 84146; 84402; 84403; 84439; 84443; 84480; 85025